=== PATIENT | male | born 1985 | race Caucasian/White ===

== ENCOUNTER → 2018-02-24 | Outpatient (CLI) | payer OTHER | END | disposition home or self-care (01) | LOC: LABMN 16:30 | PROVIDERS: ATTEND Internal Medicine | DX: Z02.1 Encounter for pre-employment examination (principal) | CPT/HCPCS: 86706; 86735; 86762; 86765; 86787 ==

== ENCOUNTER → 2018-11-07 | Outpatient (CLI) | payer OTHER | END | disposition home or self-care (01) | LOC: LABPV 10:44 | PROVIDERS: ATTEND Internal Medicine | DX: Z00.00 Encounter for general adult medical examination without abnormal findings (principal) | CPT/HCPCS: 80074; 86317; 86704; 86735; 86762; 86765; 86787; 87340 ==

== ENCOUNTER → 2018-11-16 | Outpatient (CLI) | payer OTHER | END | disposition home or self-care (01) | LOC: LABPV 09:08 | PROVIDERS: ATTEND Internal Medicine Infectious Disease | DX: Z00.00 Encounter for general adult medical examination without abnormal findings (principal); Z11.1 Encounter for screening for respiratory tuberculosis | CPT/HCPCS: 86480 ==

== ENCOUNTER 2019-02-19 06:38 | Emergency (ER) | payer OTHER ==
[~2019-02-19] VITALS: Ht 175.3 cm; Wt 86.4 kg
[2019-02-19] MEDS ORDERED: AMOXICILLIN TRIHYDRATE 250 MG CAPSULE PO ONE (07:45)
[2019-02-19] MEDS ORDERED: IBUPROFEN 800 MG TABLET PO ONE (07:45)
[2019-02-19] MEDS ORDERED: NEOMYCIN/BACITRACIN/POLYMYXIN/HYDROCORT 3.5 GM OPHTHALMIC OINTMENT OS ONE (07:45)
[2019-02-19 08:10] VITALS: BP 124/88
== END 2019-02-19 08:12 | disposition home or self-care (01) ==
LOC: EMS 06:39
DX: H68.012 Acute Eustachian salpingitis, left ear (principal); J02.9 Acute pharyngitis, unspecified; H10.9 Unspecified conjunctivitis

== ENCOUNTER 2019-02-27 07:47 | Emergency (ER) | payer OTHER ==
[~2019-02-27] VITALS: Ht 175.3 cm; Wt 86.4 kg
[2019-02-27 07:59] VITALS: BP 134/85
[2019-02-27] MEDS ORDERED: NEOMYCIN/POLYMYXIN B/HYDROCORT 10 ML OTIC SUSPENSION AS ONE (08:15)
== END 2019-02-27 08:25 | disposition home or self-care (01) ==
LOC: EMS 07:48
DX: H60.92 Unspecified otitis externa, left ear (principal)